=== PATIENT | female | born 1970 | race Hispanic/Latino ===

== ENCOUNTER 2018-08-06 06:08 | Observation (INO) | payer OTHER ==
[2018-07-30 10:50] LABS: Basophils # (Auto) 0.2 K/mm3 (0.0-0.1); Basophils % (Auto) 2.8 % (0.0-1.8); Eosinophils # (Auto) 0.3 K/mm3 (0.0-0.4); Eosinophils % (Auto) 4.8 % (0.0-4.3); Hematocrit 45.7 % (30.3-42.9); Hemoglobin 15.6 gm/dl (10.1-14.3); Lymphocytes # (Auto) 1.7 K/mm3 (1.2-5.4); Lymphocytes % (Auto) 26.6 % (13.4-35.0); Mean Corpuscular HGB Conc 34 % (30-34); Mean Corpuscular Volume 94 fl (79-97); Monocytes # (Auto) 0.5 K/mm3 (0.0-0.8); Monocytes % (Auto) 7.2 % (0.0-7.3); Platelet Count 294 K/mm3 (140-440); Red Blood Count 4.88 M/mm3 (3.65-5.03); Red Cell Distribution Width 13.5 % (13.2-15.2)
--- NOTE | 2018-07-30 11:06 | Anesthesia Consultation ---
Addendum entered and electronically signed by MOIZ ALVARADO MD 08/06/18 08:36: Examined immediately prior to procedure. No change in health since seen in pre- assessment. Consented for pre-op TAP block. Original Note: Anesthesia Consult and Med Hx Date of service: 07/30/18 - Airway Anesthetic Teeth Evaluation: Good ROM Head & Neck: Adequate Mental/Hyoid Distance: Adequate Mallampati Class: Class II Intubation Access Assessment: Probably Good - Pre-Operative Health Status ASA Pre-Surgery Classification: ASA2 Proposed Anesthetic Plan: General Nerve Block: TAP block - Pulmonary Hx Smoking: Yes (quit 10 years ago) Hx Asthma: No Hx Respiratory Symptoms: Yes (Flu in june 2018 - resolved) SOB: No Home Oxygen Therapy: No Hx Sleep Apnea: No - Cardiovascular System Hx Hypertension: Yes (x 9 mos) Hx Heart Attack/AMI: No Hx Angina: No Hx Pacemaker: No Hx Peripheral Vascular Disease: No - Central Nervous System Hx Psychiatric Problems: No - Other Systems Hx Alcohol Use: Yes (Occas) 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
--- NOTE | 2018-08-05 17:14 | History and Physical Report ---
History of Present Illness Date of examination: 07/26/18 History of present illness: This is a 47 years old female who presents with menstrual disorder. The symptoms began 3-4years ago. On a scale of mild to severe, the intensity is described as a severe. She complains of heavy bleeding and history of fibroids. Menstrual flow lasts 5 days. She was evaluated at [place] 2009 and diagnosed with fibroids. Hysterectomy was recommended at that time. Usually bleeds heavy 2-3/5days associated with pain. Occasionally n/v Past History : 2 Term Births: 2 Living Children: 2 # 1 Delivery date: 1996 Delivery type: # 2 Delivery type: V[employer]OR History Operations: Endometrial Ablation:2006 Tubal Ligation Partial thyroidectomy Tonsillectomy Abnormal PAP: negative Infection History HIV Risk Eval: no Hx of STD: None Active Medications (reviewed today): IBUPROFEN 600 MG ORAL TABLET (IBUPROFEN) PRN pain OXYCODONE-ACETAMINOPHEN 5-325 MG ORAL TABLET (OXYCODONE-ACETAMINOPHEN) 1-2po q6h prn DUPIXENT SOLUTION PREFILLED SYRINGE (DUPILUMAB SOSY) instructed to hold for now LISINOPRIL 20 MG ORAL TABLET (LISINOPRIL) 1 po qd Current Allergies (reviewed today): SULFA (Critical) Past Medical History: Reviewed history from 03/13/2018 and no changes required: Brandi's Thyrioditis Hypertension Past Surgical History: Reviewed history from 03/13/2018 and no changes required: Endometrial Ablation:2006 Tubal Ligation Partial thyroidectomy Tonsillectomy Family History Summary: Reviewed history and no changes required: 08/05/2018 Other family member - Has No Family History of Biliary Tract Cancer - Entered On: 04/17/2018 Other family member - Has No Family History of Breast Cancer - Entered On: 04/17/2018 Other family member - Has No Family History of Brain Cancer - Entered On: 04/17/2018 Other family member - Has No Family History of Colon Cancer - Entered On: 04/17/2018 Other family member - Has No Family History of Spontaneous DVT-PE - Entered On: 04/17/2018 Other family member - Has No Family History of Kidney/Urinary Tract Cancer - Entered On: 04/17/2018 Other family member - Has No Family History of Ovarvian Cancer - Entered On: 04/17/2018 Other family member - Has No Family History of Pancreatic Cancer - Entered On: 04/17/2018 Other family member - Has No Family History of Stomach Cancer - Entered On: 04/17/2018 Other family member - Has No Family History of Small Bowel Cancer - Entered On: 04/17/2018 Other family member - Has No Family History of Uterine Cancer - Entered On: 04/17/2018 Social History: Reviewed history from 03/13/2018 and no changes required: Patient is Smoking History: Patient has never smoked. Risk Factors: Smoked Tobacco Use: Never smoker Smokeless Tobacco Use: Never Passive smoke exposure: no Drug use: no HIV high-risk behavior: no Alcohol use: yes Exercise: no Seatbelt use: 100 % Previous Tobacco Use: Signed On - 03/13/2018 Smoked Tobacco Use: Never smoker Smokeless Tobacco Use: Never Drug use: no HIV high-risk behavior: no Previous Alcohol Use: Signed On - 03/13/2018 Alcohol use: yes Drinks per day: social Exercise: yes Seatbelt use: 100 % Physical Exam Appearance: well developed, well nourished, no acute distress Other Exams Abdomen: soft, non-tender, no masses Skin: no ulcers, xanthomas Extremities: normal alignment, no joint enlargement, crepitus, masses or tenderness; normal tone and strength Genitourinary Exam Vulva: normal, no lesions or discharge Urethral meatus: normal size and location, no lesions or discharge Urethra: no discharge Bladder: no cystocele Vagina: no abnormalities Cervix: no abnormalities seen Uterus: first-degree retroversion Adnexa: no masses or tenderness Impression & Recommendations: Problem # 1: Excessive and frequent menstruation with regular cycle (ICD-626.2) (DEU49-H79.0) Diagnosis explained to patient . Questions answered. Discussed with patient various medical and surgical therapies common for treatment: Hormonal/medical therapy,endometrial ablation or hysterectomy. She desires to proceed with hysterectomy and BSO Consent reviewed and signed . Possible laparoscopy or laparotomy explained to patient. The risks and alternatives for this surgery were reviewed with the patient. She was informed of possible bleeding, infection, injury to bowel, bladder, ureters or other adjacent organs. She was informed she will not be able to get aafter her uterus has been removed. She desires removal of her ovaries. She was informed she may have an increased risk for cancers and other morbidities as well as mortality wiht removal of her ovaries prior to natural menopause. Discussed use of hormone therapy. Risks reviewed with patient but not limited to:CVA, CO, DVT, PE, Breast cancer, liver problems. Discussed use of hormone therapy. Risks reviewed with patient but not limited to:CVA, CO, DVT, PE, Breast cancer, liver problems. Patient counseled that she should use the lowest effective dose of HRT/ERT for the shortest period of time Other options for offered, encouraged to exercise, increase water intake, decrease Na+ and carbohydrate intake. The patient was instructed/informed the following: The normal length of hospital stay for this procedure. Nothing to eat or drink after midnight the evening prior to surgery. Clear liquids the day before surgery. Fleets enema the day prior to surgery. Pre-op instruction sheets given. Wound care instructions given. Infection precautions reviewed, patient to call for any signs or symptoms of infection. The usual discomforts associated with this procedure were detailed. Proper use of pain medicines was reviewed. Patient was given ample opportunity to have all her questions answered before signing informed consent. Problem # 2: Atypical squamous cells of undetermined significance on cytologic smear of cervix (ASC-US) (ICD-795.01) (GOA10-W94.610) Problem # 3: Fibroids of uterus; Intramural (ICD-218.1) (BYA83-R48.1) Diagnosis explained to patient . Questions answered. Discussed with patient various medical, surgical and radioloigal therapies common for treatment: Hormonal/medical therapy, fibroid embolization, removal of fibroids or hysterectomy Problem # 4: Pelvic and perineal pain (ICD-789.00) (TEQ85-X21.2) It was extensively explained to her that her pain may persist, recur or change in nature due to the difficulty with diagnosis chronic pelvic pain or development of adhesions. She declined other treatment options at this time. Questions were encouraged and answered. Prescriptions: IBUPROFEN 600 MG ORAL TABLET (IBUPROFEN) PRN pain #30 x 0 Entered and Authorized by: Celina Mack MD Method used: Print then Give to Patient RxID: [id number] OXYCODONE-ACETAMINOPHEN 5-325 MG ORAL TABLET (OXYCODONE-ACETAMINOPHEN) 1-2po q6h prn #20 x 0 Entered and Authorized by: Celina Mack MD Method used: Print then Give to Patient RxID: [id number] Medications and Allergies Allergies Allergy/AdvReac Type Severity Reaction Status Date / Time sulfamethoxazole Allergy Hives Verified 07/29/18 16:00 [From Bactrim] trimethoprim [From Bactrim] Allergy Hives Verified 07/29/18 16:00 Home Medications Medication Instructions Recorded Confirmed Last Taken Type Dupilumab [Dupixent] 300 mg SQ Q2W 07/29/18 07/29/18 Unknown History Lisinopril 20 mg PO DAILY 07/29/18 07/29/18 Unknown History Active Meds: Active Medications Celecoxib (Celebrex) 200 mg PO PREOP NR Stop: 08/06/18 18:00 Fentanyl (Sublimaze) 100 mcg IV ONCE PRN PRN Reason: procedural sedation Stop: 08/06/18 23:59 Gabapentin (Neurontin) 300 mg PO PREOP NR Stop: 08/06/18 23:59 Lactated Ringer's (Lactated Ringers) 1,000 mls @ 100 mls/hr IV DIRECT MARAL Cefazolin Sodium (Ancef/Sterile Water 2 Gm/20 Ml) 2 gm in 20 mls @ 80 mls/hr IV PREOP NR; Protocol Midazolam HCl (Versed) 2 mg IV PREOP NR Stop: 08/06/18 23:59 Exam Vital Signs Temp Pulse Resp BP Pulse Ox 97.6 F 97 H 18 148/96 97 07/30/18 10:10 07/30/18 10:10 07/30/18 10:10 07/30/18 10:10 07/30/18 10:10 - Respiratory Positive: normal expansion, normal respiratory effort, clear to auscultation - Cardiovascular Rhythm: regular Results - Labs 07/30/18 10:30 Assessment and Plan - Patient Problems (1) Excessive and frequent menstruation with regular cycle Status: Chronic (2) Pelvic pain Status: Chronic (3) Fibroids, intramural Status: Chronic (4) ASCUS with positive high risk HPV Status: Chronic
[~2018-08-06 06:08] MED LIST: ANCEF/STERILE WATER 2 GM/20 ML 2 GM/20 ML SYRINGE IV NR; LACTATED RINGERS 1,000 ML IV SCH; NEURONTIN PO NR; SUBLIMAZE IV PRN; VERSED IV NR
[2018-08-06] MEDS ORDERED: TRANSDERM-SCOP TD ONE (07:12)
[2018-08-06] MEDS ORDERED: DECADRON ONE ×2 (07:26→07:42)
[2018-08-06] MEDS ORDERED: MARCAINE 0.25% INFILTRATI ONE (07:26)
[2018-08-06] MEDS ORDERED: NEOSPORIN GU IR ONE ×2 (07:40→09:04)
[2018-08-06] MEDS ORDERED: QUELICIN ONE (07:42)
[2018-08-06] MEDS ORDERED: XYLOCAINE MPF 2% ONE (07:42)
[2018-08-06] MEDS ORDERED: ZOFRAN ONE (07:42)
[2018-08-06] MEDS ORDERED: ZEMURON IV ONE (07:42)
[2018-08-06] MEDS ORDERED: SUBLIMAZE ONE (07:43)
[2018-08-06] MEDS ORDERED: DIPRIVAN 10 MG/ML IV ONE (07:43)
--- NOTE | 2018-08-06 08:37 | Anesthesia Day of Surgery ---
Anesthesia Day of Surgery - Day of Surgery Patient Examined: Yes Patient H&P Reviewed: Yes Patient is NPO: Yes
[2018-08-06] MEDS ORDERED: NACL 0.9% IR ONE (09:04)
[2018-08-06] MEDS ORDERED: BLOXIVERZ ONE (09:50)
[2018-08-06] MEDS ORDERED: ROBINUL ONE (09:50)
[2018-08-06] MEDS ORDERED: TORADOL ONE (10:06)
[2018-08-06] MEDS: DILAUDID IV PRN ×3 (10:34→11:06)
[2018-08-06] MEDS ORDERED: DILAUDID ONE (10:35)
--- NOTE | 2018-08-06 10:37 | Operative Report ---
Operative Report Operative Report: Date: 08/06/2018 Preoperative diagnosis: 1. Menorrhagia 2. Pelvic pain 3. Uterine fibroids 4. Abnormal Pap smear 5. Hypertension 6. Thyroiditis Postoperative diagnosis: 1. Menorrhagia 2. Pelvic pain 3. Uterine fibroids 4. Abnormal Pap smear 5. Hypertension 6. Thyroiditis Procedure: 1. Robotic-assisted laparoscopic total hysterectomy 2. Robotic-assisted laparoscopic bilateral salpingo-oophorectomy Surgeon: Celina Mack MD Sas Analyst: Britany Jamison Anesthesiologist: [] Anesthesia: General endotracheal anesthesia EBL: Approximately minimal mL Findings: Exam anesthesia revealed the uterus to be retroverted. Uterus sounded to approximately 8 cm. Multiple uterine fibroids with grossly normal ovaries, interrupted tubes consistent with previous sterilization Procedure: Patient was taken to the OR and placed in the supine position. General anesthesia was induced and an oral gastric tube was placed. Her neck and head were placed on foam support. Foam eye protection with goggles were secured in place. Then foam face protection was placed and secured. Foam shoulder pads were then positioned on her shoulders for Trendelenburg positioning. She was then placed in dorsolithotomy position. Exam under anesthesia as above. The abdomen and vagina were then prepped and draped in the usual sterile fashion. Timeout was performed. A Hernandez catheter was inserted into the bladder with drainage of clear yellow urine. The operative speculum was introduced into the vagina and the anterior lip of the cervix was grasped with single-toothed tenaculum. The uterus was sounded to 8 cm. The cervix was progressively dilated to allow the large V care uterine manipulator. The bulb of the manipulator was inflated and the speculum and tenaculum were removed. The cup of the manipulator was placed around the cervix and the blue occluder of the manipulator was properly positioned in the vagina. A laparotomy sponge that was saturated with a solution of polymyxin and saline was placed in the vagina to ensure pneumoperitoneum. Sterile gloves were placed and attention was turned to the abdomen. A 10 mm vertical supraumbilical incision was made approximately 10 cm superior to the elevated fundus of the uterus. A 10 mm trocar with the laparoscope and camera attached was introduced through this incision under direct visualization. The abdomen was insufflated. No obvious bowel, bladder, ureteral, or major vascular injury was noted. The patient was then placed in steep Trendelenburg position and the following trochars were placed under direct visualization: 8 mm robotic trochars were placed through incisions made in the bilateral midclavicular lower abdominal region approximately 10 cm lateral to the midline incision, and a 5 mm trocar was placed through an incision made in the right lower lateral pelvis approximately 2 cm superior to the iliac crest. The 10 mm laparoscope was then replaced by a 5 mm laparoscope that was placed through the 5 millimeter lateral trocar. The 12 mm trocar was then removed in the Nathan Vance fascial closure device was placed through the incision and a 0 Vicryl was placed through the fascia. Once the suture was secured the 12 mm trocar was reintroduced. Once the trochars were in the appropriate positions, the the [employer] robot system was engaged. The EndoShears and bipolar device was placed through the 8 mm trochars and positioned then attention was turned to the console. The utero-ovarian ligaments were clamped. cauterized and incised bilaterally using 30 W of energy. Then the round ligaments were clamped, cauterized and incised bilaterally. The anterior leaf of the broad ligament was elevated and careful blunt and sharp dissection the bladder flap was created and dissected away from the lower uterine segment and cervix. The posterior leaf of the broad ligament was dissected away from the uterine vessels. The cup of the uterine manipulator was palpated both anteriorly and posteriorly. Course of the ureters was visualized and was confirmed to be away from the operative field. The uterine vessels were then clamped and cauterized bilaterally. Blanching of the uterus was then noted. Attention was again turned to the anterior lower uterine segment and the bladder was confirmed to be away from the operative field. Then attention was turned again to the posterior where the cup of the manipulator was palpated and a colpotomy was performed down to the cup. The incision was extended in the lateral position the uterine vessels that were again clamped and cauterized and incised. Continuing along the cup of the manipulator in a circumferential manner the colpotomy was completed. The uterus and cervix were then removed through the vaginal incision. A moist laparotomy sponge was placed in the vagina to maintain pneumoperitoneum. The pelvis was irrigated with warm normal saline. Attention was turned to the adnexa. The right ovary and tube were elevated, once the course of the ureter was noted to be away from the operative field, salpingo-oophorectomy was performed, and the ovary and tube were removed through the vagina. The same procedure was performed on the left adnexa. A moist laparotomy sponge was placed in the vagina to maintain pneumoperitoneum. The vagina cuff was reapproximated using V LOC 180 suture in a simple running stitch. Then a J stitch was performed to secure the suture. Again the pelvis was copiously irrigated with polymixin in warm normal saline. The laparotomy sponge was removed from the vagina. No bowel, bladder, ureteral or major vascular injury was noted. Once hemostasis was noted, Jeff was applied to the operative field to ensure hemostasis. Again hemostasis was noted. Then the instruments were removed, the robot was disengaged. The 10 mm trocar was removed and the fascia was ligated with the 0 Vicryl suture that was placed at the beginning of the procedure. The patient was taken out of Trendelenburg position, the abdomen was desufflated, the remaining trochars were removed. Incisions were reapproximated using 4-0 Vicryl in a subcuticular manner. Surgiseal was placed over the incisions. The vagina was then inspected, no bleeding was noted and clear yellow urine was draining into the Hernandez bag from the bladder at the end of the procedure. Patient was taken to recovery room in stable condition.
[2018-08-06] MEDS ORDERED: LACTATED RINGERS 400 ML IV ONE (12:00)
[2018-08-06] MEDS ORDERED: MORPHINE IV PRN ×2 (12:28)
[2018-08-06] MEDS ORDERED: ZOFRAN ODT PO PRN (12:28)
[2018-08-06] MEDS ORDERED: ZOFRAN IV PRN (12:28)
[2018-08-06] MEDS ORDERED: REGLAN IV PRN (12:28)
[2018-08-06] MEDS ORDERED: REGLAN PO PRN (12:28)
[2018-08-06] MEDS: LACTATED RINGERS 1,000 ML IV SCH ×2 (12:56→21:26)
--- NOTE | 2018-08-06 13:26 | Post Anesthesia Evaluation ---
- Post Anesthesia Evaluation Patient Participated: Yes Airway Patent: Yes Stable Respiratory Function: Yes Nausea/Vomiting: No Temp > 96.8F: Yes Pain Manageable: Yes Adequeate Hydration: Yes Anesthesia Complications: No
[2018-08-06] MEDS: ANCEF/NS 1 GM/50 ML 1 GM/50 ML BAG IV SCH ×2 (16:27→23:32)
[2018-08-06] MEDS: TYLENOL PO SCH ×2 (16:28→21:33)
[2018-08-06] MEDS: TORADOL IV SCH (18:08)
[2018-08-06] MEDS ORDERED: BENADRYL PO PRN (19:13)
--- NOTE | 2018-08-06 19:19 | Progress Note ---
Assessment and Plan Will allow soft diet and benadryl tonight Operative findings and procedure explained, plan of care discussed, questions encouraged and answered. She voiced understanding and agrees with plan of care - Patient Problems (1) History of robot-assisted laparoscopic hysterectomy Current Visit: Yes Status: Acute (2) Status post bilateral salpingo-oophorectomy (BSO) Current Visit: Yes Status: Acute (3) Hypertension Current Visit: Yes Status: Acute (4) Thyroiditis Current Visit: Yes Status: Acute (5) Excessive and frequent menstruation with regular cycle Current Visit: No Status: Resolved (6) Pelvic pain Current Visit: No Status: Resolved (7) Fibroids, intramural Current Visit: No Status: Resolved (8) ASCUS with positive high risk HPV Current Visit: No Status: Chronic Subjective - Subjective Date of service: 08/06/18 Principal diagnosis: DOS s/p RATH. BSO Interval history: Resting in bed with her at her bedside, c/o JIM, desires soft diet b/c she feels it will help her JIM. Desires benadryl for sleep Patient reports: appetite normal, voiding normally, pain well controlled, ambulating normally, no nauseated Objective - Vital Signs Latest vital signs: Vital Signs Temp Pulse Resp BP Pulse Ox 08/06/18 16:25 88 16 143/88 97 08/06/18 12:00 20 08/06/18 11:56 97.7 F 77 16 162/84 93 08/06/18 11:40 97.2 F L 76 16 151/90 98 08/06/18 11:36 16 08/06/18 11:15 76 16 157/86 97 08/06/18 11:06 16 08/06/18 11:05 16 08/06/18 11:00 68 16 156/85 97 08/06/18 10:47 12 08/06/18 10:45 72 12 148/83 97 08/06/18 10:34 12 08/06/18 10:30 63 11 L 146/85 96 08/06/18 10:25 62 12 148/81 98 08/06/18 10:20 65 16 151/84 98 08/06/18 10:15 79 16 155/90 99 08/06/18 10:10 97.5 F L 75 16 151/89 100 08/06/18 07:45 74 14 150/84 99 01/22/19 07:40 71 14 147/89 99 08/06/18 07:35 75 16 137/86 99 08/06/18 07:30 83 18 153/94 99 08/06/18 06:45 98.0 F 87 18 164/94 97 08/06/18 06:20 98.0 F 87 18 164/94 97 Intake and Output 08/06/18 08/06/18 08/06/18 06:59 14:59 22:59 Intake Total 1250 2020 Output Total 300 1050 Balance 950 970 Intake: IV 1250 Oral 1020 Other 1000 Output: Urine 300 1050 Indwelling Catheter 150 Uretheral (Hernandez) 50 Void 1050 Other: Total, Intake Amount 500 Total, Output Amount 150 700 Voiding Method Toilet Indwelling Catheter - Exam Breasts: Present: deferred Cardiovascular: Present: Regular rate Lungs: Present: Clear to auscultation, Normal air movement Abdomen: Present: soft, normal bowel sounds Extremities: Present: normal, edema. Absent: tenderness Incision: Present: normal, dry, intact
[2018-08-07] MEDS: TORADOL IV SCH (01:06)
[2018-08-07] MEDS: TYLENOL PO SCH ×2 (04:03→08:00)
[2018-08-07 04:37] LABS: Hematocrit 40.7 % (30.3-42.9); Hemoglobin 13.7 gm/dl (10.1-14.3)
[2018-08-07 07:41] VITALS: BP 130/79
--- NOTE | 2018-08-07 08:55 | Discharge Summary ---
Providers - Providers Date of Admission: 08/06/18 10:00 Date of discharge: 08/07/18 Attending physician: KG PROCTOR Hospitalization Condition: Good Procedures: RATH/BSO Hospital course: Normal Disposition: TO HOME OR SELFCARE - Discharge Diagnoses (1) History of robot-assisted laparoscopic hysterectomy Status: Acute (2) Status post bilateral salpingo-oophorectomy (BSO) Status: Acute (3) Hypertension Status: Chronic (4) Thyroiditis Status: Chronic (5) Excessive and frequent menstruation with regular cycle Status: Resolved (6) Pelvic pain Status: Resolved (7) Fibroids, intramural Status: Resolved (8) ASCUS with positive high risk HPV Status: Chronic Core Measure Documentation - Palliative Care Palliative Care/ Comfort Measures: Not Applicable - Core Measures Any of the following diagnoses?: none Exam - Constitutional Vitals: Temp Pulse Resp BP Pulse Ox 97.6 F 70 18 130/79 98 08/07/18 07:15 08/07/18 07:15 08/07/18 07:30 08/07/18 07:15 08/07/18 04:00 General appearance: Present: no acute distress - Neck Neck: Present: supple - Respiratory Respiratory effort: normal Respiratory: bilateral: CTA - Cardiovascular Rhythm: regular - Extremities Extremities: no ischemia, No edema - Abdominal General gastrointestinal: Present: soft, non-tender, non-distended, normal bowel sounds Female genitourinary: Present: deferred - Integumentary Integumentary: Present: clear, warm, dry (Incisions: c/d/i, no s/s infection) - Psychiatric Psychiatric: appropriate mood/affect, intact judgment & insight, memory intact, cooperative Plan Activity: other (No sex. Ambulate ~1mile on your property a day. Void every 1-2 hours. Use your incentive spirometer every 1 hour while awake. No driving.) Weight Bearing Status: Weight Bear as Tolerated Diet: low salt (Eat small meals frequently. Drink 90oz water a day. ) Wound: open to air, keep clean and dry Special Instructions: no heavy lifting (Greater than 25lbs) Follow up with: XIN GUEVARA [Other] - 7 Days KG PROCTOR MD [Staff Physician] - (As scheduled)
[2018-08-07] MEDS ORDERED: PERCOCET 5/325 PO PRN (10:00)
[2018-08-07] MEDS ORDERED: ZESTRIL PO SCH (10:00)
== END 2018-08-07 10:44 | disposition home or self-care (01) ==
LOC: OR 06:08 → OB 10:00
PROVIDERS: ADMIT Obstetrics & Gynecology; ATTEND Obstetrics & Gynecology
DX: N92.1 Excessive and frequent menstruation with irregular cycle (principal); R10.2 Pelvic and perineal pain; D25.9 Leiomyoma of uterus, unspecified; I10 Essential (primary) hypertension; E06.3 Autoimmune thyroiditis; N92.0 Excessive and frequent menstruation with regular cycle
CPT/HCPCS: 36415; 58571; 64450; 81025; 84439; 84443; 85014; 85018; 85025; 86850; 86900; 86901; 88307; 96365; 96366; 96375; 96376; A4217; G0378; J0330; J0690; J1100; J1170; J1885; J2250; J2270; J2405; J2704; J2710; J3010; J7120; S2900; 88305

== ENCOUNTER 2019-03-03 10:17 | Outpatient (CLI) | payer OTHER ==
--- NOTE | 2019-03-03 16:33 | Mammography Report ---
LEFT DIGITAL DIAGNOSTIC MAMMOGRAM WITH CAD LEFT COMPLETE BREAST ULTRASOUND INDICATION: Left breast pain. TECHNIQUE: Digital left mammographic imaging was performed. This examination was interpreted with jose flaherty benefit of Computer-Aided Detection (CAD) analysis. COMPARISON: 08/28/2018 FINDINGS: Breast Density: The breasts are almost entirely fatty. There is no evidence of dominant mass, suspicious calcifications or architectural distortion in the l eft breast. Ultrasound Findings: Complete sonographic evlauation of all 4 quadrants and retroareolar region was p erformed. No mass, architectural distortion or suspicious calcifications. IMPRESSION: Negative left mammogram and negative left breast ultrasound. BI-RADS Category 1: Negative. Recommend routine screening mammography in one year. Recommend clinic al follow-up. A "normal" or negative report should not discourage follow up or biopsy of a clinically significant f inding. A written summary of these findings will be mailed to the patient. The patient will be entered into a mammography reporting system which will generate a reminder letter for the patient's next appointmen t at the appropriate interval. FURTHER INFORMATION: According to the [employer], yearly mammograms are recommend ed starting at age 40 and continuing as long as a woman is in good health. Breast MRI is recommended for women with an approximately 20-25% or greater lifetime risk of breast cancer, including women wi th a strong family history of breast or ovarian cancer and women who have been treated for Hodgkin's disease. Signer Name: Oscar Flowers MD Signed: 03/03/2019 4:28 PM Workstation Name: [id number]
== END 2019-03-03 10:18 | disposition home or self-care (01) ==
LOC: MAMMO 10:17
PROVIDERS: ATTEND Obstetrics & Gynecology
DX: N64.4 Mastodynia (principal); I10 Essential (primary) hypertension; Z90.89 Acquired absence of other organs

== ENCOUNTER 2020-08-30 13:33 | Outpatient (CLI) | payer BC ==
--- NOTE | 2020-08-30 16:45 | Mammography Report ---
DIGITAL SCREENING MAMMOGRAM WITH CAD, 08/30/2020 CLINICAL INFORMATION / INDICATION: Routine screening mammography. TECHNIQUE: Digital bilateral 2D mammography was obtained in the craniocaudal and mediolateral obliqu e projections. This examination was interpreted with the benefit of Computer-Aided Detection analysis . COMPARISON: 08/28/2018 FINDINGS: Breast Density: There are scattered areas of fibroglandular density. No dominant mass, suspicious calcifications, or architectural distortion in either breast. No interval change. IMPRESSION: No mammographic evidence of malignancy. Follow up recommendation: Routine yearly BI-RADS Category 1: Negative. A "normal" or negative report should not discourage follow up or biopsy of a clinically significant f inding. A written summary of these findings will be mailed to the patient. The patient will be entered into a mammography reporting system which will generate a reminder letter for the patient's next appointmen t at the appropriate interval. The [employer] recommends yearly mammograms starting at age 40 and continuing as l monika as a woman is in good health. Breast MRI is recommended for women with an approximate 20-25% or greater lifetime risk of breast cancer, including women with a strong family history of breast or ova celina cancer or who have been treated for Hodgkin's disease. Signer Name: Judi Maldonado MD Signed: 08/30/2020 4:41 PM Workstation Name: [id number]
== END 2020-08-30 13:34 | disposition home or self-care (01) ==
LOC: MAMMO 13:33
PROVIDERS: ATTEND Obstetrics & Gynecology
DX: Z12.31 Encounter for screening mammogram for malignant neoplasm of breast (principal)
CPT/HCPCS: 77067

== ENCOUNTER 2021-10-20 11:02 | Outpatient (CLI) | payer OTHER ==
--- NOTE | 2021-10-21 11:39 | Mammography Report ---
DIGITAL SCREENING MAMMOGRAM WITH CAD, 10/20/2021 CLINICAL INFORMATION / INDICATION: Routine screening mammography. SCREENING MAMMOGRAM TECHNIQUE: Digital bilateral 2D mammography was obtained in the craniocaudal and mediolateral obliqu e projections. This examination was interpreted with the benefit of Computer-Aided Detection analysis . COMPARISON: 08/30/2020 FINDINGS: Breast Density: There are scattered areas of fibroglandular density. No dominant mass, suspicious calcifications, or architectural distortion in either breast. Previous bilateral breast augmentation. IMPRESSION: No mammographic evidence of malignancy. Follow up recommendation: Routine yearly BI-RADS Category 1: NEGATIVE A "normal" or negative report should not discourage follow up or biopsy of a clinically significant f inding. A written summary of these findings will be mailed to the patient. The patient will be entered into a mammography reporting system which will generate a reminder letter for the patient's next appointmen t at the appropriate interval. The [employer] recommends yearly mammograms starting at age 40 and continuing as l monika as a woman is in good health. Breast MRI is recommended for women with an approximate 20-25% or greater lifetime risk of breast cancer, including women with a strong family history of breast or ova celina cancer or who have been treated for Hodgkin's disease. Signer Name: Musa Agudelo MD Signed: 10/21/2021 11:35 AM Workstation Name: [employer]
== END 2021-10-20 11:03 | disposition home or self-care (01) ==
LOC: MAMMO 11:02
PROVIDERS: ATTEND Obstetrics & Gynecology
DX: Z12.31 Encounter for screening mammogram for malignant neoplasm of breast (principal)
CPT/HCPCS: 77067